=== PATIENT | male | born 1965 | race Caucasian/White ===

== ENCOUNTER → 2016-08-14 | Outpatient (CLI) | payer BC | END | disposition home or self-care (01) | LOC: PUL 14:31 | PROVIDERS: ATTEND Physician Assistant | DX: R05 Cough (principal); J44.9 Chronic obstructive pulmonary disease, unspecified | CPT/HCPCS: 94060; 94726; 94729 ==

== ENCOUNTER 2018-03-14 07:12 | Day surgery (SDC) | END 2018-03-14 16:08 | disposition home or self-care (01) ==